=== PATIENT | female | born 1970 | race Asian ===

== ENCOUNTER 2016-09-06 20:50 | Emergency (ER) | payer BC ==
[2016-09-06 20:56] VITALS: RESP 16; O2SAT 97
--- NOTE | 2016-09-06 21:57 | EDPHY ---
H & P HPI/ROS: Chief complaint: Sore throat History of present illness: This is a 45-year-old female who presents to the emergency department for sore throat. Patient reports the onset of symptoms approximately a week ago. States in addition the throat being sore it feels swollen. She has had associated slight cough. She denies precipitating factors. She denies alleviating factors. She denies other associated signs or symptoms: No fevers, no trouble breathing, no rash. Past Medical/Surgical History: Not currently Smoking Status: Never smoked Physical Exam: General Appearance: Alert, nontoxic. Eyes: Pupils equal and round no injection. ENT: Tympanic membranes, external auditory canals, external ears and surrounding soft tissue including over the mastoids are unremarkable. Nasopharynx is not injected. There is no rhinorrhea. Oropharynx is injected. There is mild edema. There is no exudate. There is no asymmetry. The uvula is midline. No elevation of the tongue. There is no hoarseness, no drooling, no trismus, no stridor. Respiratory: Chest is non tender, lungs are clear to auscultation. Cardiac: regular rate and rhythm Musculoskeletal: Neck is supple and non tender. Extremities have full range of motion and are non tender. Skin: No rashes. Neurological: Alert and oriented x4.Strength and sensation intact and symmetrical. No meningismus. Constitutional: Initial Vital Signs Temperature (C) 36.8 C 09/06/16 20:53 Heart Rate 85 09/06/16 20:53 Respiratory Rate 16 09/06/16 20:53 Blood Pressure 118/75 09/06/16 20:53 O2 Sat (%) 97 09/06/16 20:53 O2 Delivery Mode Room Air Allergies/Adverse Reactions: No Known Allergies Allergy (Verified 09/06/16 20:55) Home Medications: Medication Instructions Recorded Herbals/Supplements -Info Only 1 cap PO DAILY 12/18/13 Herbals/Supplements -Info Only 1 cap PO DAILY 12/18/13 Levothyroxine [Synthroid 75 mcg 1 tab PO DAILY06 12/18/13 (*)] Medical Decision Making ED Course/Re-evaluation: Patient seen under the supervision of my secondary supervising physician Dr. Alfredo Rogers. Patient presents to the emergency department for a sore throat. She is nontoxic. Vital signs are stable. She does have a pharyngitis but strep swab is negative. No evidence of complications such as abscess formation. She is given a dose of Decadron for symptom control. She is discharged home. Home care is discussed. Return precautions are given. Patient voiced understanding and agreement with plan. Differential Diagnosis: Included but not limited to pharyngitis, strep pharyngitis, mononucleosis, abscess formation - Data Points Laboratory Results: 09/06/16 09/06/16 Unknown 21:30 Group A Strep Screen NEGATIVE (NEGATIVE) Group A Strep DNA Pending Medications Given: Discontinued Medications Dexamethasone (Decadron) 8 mg PO EDNOW ONE Stop: 09/06/16 22:06 Last Admin: 09/06/16 22:11 Dose: 8 mg Departure - Departure Disposition: Home, Routine, Self-Care Clinical Impression: Acute pharyngitis Qualifiers: Pharyngitis/tonsillitis etiology: unspecified etiology Qualified Code(s): J02.9 - Acute pharyngitis, unspecified Condition: Good Instructions: Pharyngitis (ED) Additional Instructions: Follow-up with a primary care doctor for recheck If symptoms worsen or new symptoms develop return to the emergency room for recheck Referrals: Shama Ibarra MD [Primary Care Provider] - As per Instructions
[2016-09-06] MEDS ORDERED: DEXAMETHASONE 4 MG TAB PO ONE (22:05)
[2016-09-06 22:12] VITALS: BP 120/74; PULSE 78; TEMP 98.4
== END 2016-09-06 22:11 | disposition home or self-care (01) ==
DX: J02.9 Acute pharyngitis, unspecified (principal)

== ENCOUNTER → 2016-11-08 | Outpatient (CLI) | payer BC | LOC: FIMAGING 11:00 | PROVIDERS: ATTEND Internal Medicine | DX: Z12.31 Encounter for screening mammogram for malignant neoplasm of breast (principal) | CPT/HCPCS: G0202 ==

== ENCOUNTER → 2017-11-06 | Outpatient (CLI) | payer BC | LOC: FIMAGING 08:05 | PROVIDERS: ATTEND Internal Medicine | DX: Z12.31 Encounter for screening mammogram for malignant neoplasm of breast (principal) ==

== ENCOUNTER 2018-05-25 10:24 | Emergency (ER) | payer BC ==
[2018-05-25] MEDS ORDERED: ACETAMINOPHEN 325 MG TAB PO ONE (12:03)
[2018-05-25] MEDS ORDERED: IBUPROFEN 600 MG TAB PO ONE (12:03)
--- NOTE | 2018-05-25 12:21 | EDPHY ---
H & P Time Seen by Provider: 05/25/18 12:11 HPI/ROS: CHIEF COMPLAINT: Sore throat, fever times 24 hr HISTORY OF PRESENT ILLNESS: 47-year-old immunocompetent female complaining sore throat fever since this morning. No myalgias. No arthralgias. No flu- like symptoms. No cough. No chest pain. No dyspnea. No rash. No nuchal rigidity. No headache. No otalgia. PRIMARY CARE PROVIDER: REVIEW OF SYSTEMS: 10 systems reviewed and negative with the exception of the elements mentioned in the history of present illness PAST MEDICAL & SURGICAL HISTORY: up-to-date influenza vaccination SOCIAL HISTORY: Nonsmoker PHYSICAL EXAM (Prior to examination, patient consented to physical exam, hands were washed and my usual and customary physical exam procedures followed) 1) GENERAL: Well-developed, well-nourished, alert and oriented. Appears to be in no acute distress. Hygiene questions appropriate 2) HEAD: Normocephalic, atraumatic 3) HEENT: Pupils equal, round, reactive to light bilaterally. Sclera anicteric. Oropharynx: Bilateral tonsils are symmetrically enlarged with white exudate. Uvula midline. No trismus no drooling. No hot potato voice. Moist Mucous membranes. Ears bilaterally with normal tympanic membranes. 4) NECK: Full range of motion, no meningeal signs. No adenopathy. 5) LUNGS: Clear auscultation bilaterally, no wheezes, no rhonchi, no retractions. 6) HEART: Regular rate and rhythm, no murmur, no heave, no gallop. 7) ABDOMEN: No guarding, no rebound, no focal tenderness, negative McBurney's, negative Romero's, negative Rovsing's, negative peritoneal sign, 8) MUSCULOSKELETAL: Moving all extremities, no focal areas of tenderness, no obvious trauma. No peripheral edema or discoloration. 9) BACK: No CVA tenderness, no midline vertebral tenderness, no fluctuance, no step-off, no obvious trauma, no visual or palpable abnormality. 10) SKIN: No rash, no petechiae. 11) Psychiatric: Patient is oriented X 3, there is no agitation. DIFFERENTIAL DIAGNOSIS: In no particular order, my differential diagnosis includes, but is not limited to, strep pharyngitis, viral pharyngitis, peritonsillar abscess, retropharyngeal abscess or plegmon, mononucleosis, meningitis, Lemierre syndrome. Smoking Status: Never smoked Constitutional: Initial Vital Signs Temperature (C) 37.7 C 05/25/18 10:27 Heart Rate 112 H 05/25/18 10:27 Respiratory Rate 16 05/25/18 10:27 Blood Pressure 126/84 H 05/25/18 10:27 O2 Sat (%) 96 05/25/18 10:27 O2 Delivery Mode Room Air Allergies/Adverse Reactions: No Known Allergies Allergy (Verified 09/06/16 20:55) Home Medications: Medication Instructions Recorded Amoxicillin/Clavulanate Pot 875 mg PO BID #14 tab 05/25/18 [Augmentin 875 mg tab] methylPREDNISolone [Medrol Dose 4 mg PO DAILY #1 ea 05/25/18 Wayne] MDM/Departure - MDM Medications Given: Discontinued Medications Acetaminophen (Tylenol) 650 mg PO EDNOW ONE Stop: 05/25/18 12:04 Last Admin: 05/25/18 12:08 Dose: 650 mg Ibuprofen (Motrin) 600 mg PO EDNOW ONE Stop: 05/25/18 12:04 Last Admin: 05/25/18 12:08 Dose: 600 mg ED Course/Re-evaluation: 12:45 p.m.: Re-evaluation, heart rate in the 90s without intervention the emergency department.. High clinical suspicion for strep pharyngitis. Negative influenza testing. Recommended empiric treatment for strep pharyngitis. Doubt meningitis. Doubt peritonsillar abscess. Plan will be discharge home. Given my usual and customary ENT precautions instructions. Care of patient under supervision of secondary supervising physician Dr Moses Wilson. - Depart Disposition: Home, Routine, Self-Care Clinical Impression: Acute streptococcal pharyngitis Condition: Good Instructions: Strep Throat (ED) Additional Instructions: Return to the ER immediately if you cannot swallow, have drooling, fevers, neck stiffness, cannot open your jaw, or any other symptoms that concern you. Prescriptions: Amoxicillin/Clavulanate Pot [Augmentin 875 mg tab] 875 mg PO BID #14 tab methylPREDNISolone [Medrol Dose Wayne] 4 mg PO DAILY #1 ea Referrals: Moses Khan MD [Medical Doctor] - 2-3 days, call for appt.
[2018-05-25 12:42] VITALS: BP 135/78
[2018-05-25 18:32] LABS: GROUP A STREP DNA (THROAT) POSITIVE (NEGATIVE)
== END 2018-05-25 12:57 | disposition home or self-care (01) ==
DX: J02.0 Streptococcal pharyngitis (principal); D84.9 Immunodeficiency, unspecified

== ENCOUNTER → 2018-11-08 | Outpatient (CLI) | payer BC | LOC: FIMAGING 12:08 ==